=== PATIENT | male | born 1980 | race Caucasian/White ===

== ENCOUNTER 2021-04-13 17:13 | Emergency (ER) | payer OTHER, SELFPAY ==
--- NOTE | ~2021-04-13 | XR_ITS ---
XR lumbar spine 2-3V DATE: 04/13/2021 17:59 INDICATION: Back injury, low back pain TECHNIQUE: AP, lateral, coned lateral lumbosacral views COMPARISON: None FINDINGS: There is moderate degenerative disc disease and grade 1 anterolisthesis at L3-4. Remaining lumbar interspaces are relatively intact. No fracture or bone destruction is evident. Included lower thoracic and lumbar pedicles are intact. The sacroiliac joints appear normal. IMPRESSION: Moderate degenerative disc disease and grade 1 anterolisthesis at L3-4 Reviewed, dictated and finalized at location A. IMPRESSION: Moderate degenerative disc disease and grade 1 anterolisthesis at L 3-4
--- NOTE | ~2021-04-13 | XR_ITS ---
XR shoulder RT min 2V DATE: 04/13/2021 17:58 INDICATION: Hyperextension injury. Limited range of motion. TECHNIQUE: 4 views COMPARISON: None FINDINGS: No fracture or dislocation, periosteal reaction or bone destruction or abnormal right shoul luisa soft tissue calcification. Normal alignment at the acromioclavicular and glenohumeral joints. IMPRESSION: Negative Reviewed, dictated and finalized at location A. IMPRESSION: Negative
[2021-04-13 17:20] VITALS: BP 144/81; PULSE 74; RESP 18; TEMP 36.8; O2SAT 98
--- NOTE | 2021-04-13 17:26 | ED.EXTPRO ---
HPI - Extremity Problem General Chief complaint: Extremity Injury, Upper Stated complaint: Fall Injury/Right Shoulder Time Seen by Provider: 04/13/21 17:42 Source: patient Mode of arrival: ambulatory Limitations: no limitations History of Present Illness HPI Narrative: Leif is a 41 year old male patient who arrived ambulatory to the [facility]. Patient states he fell off of a ten foot ladder this am when working on a pole. He states the ladder crumbled and he slid down the pole landing on his feet then landing on his butt. Patient denies any LOC; shortness of breath, abdominal pain. Patient states he has abrasions on left lower back and bruising above tailbone. STates he has left shoulder pain, states he overextended shoulder when trying to hold onto pole. Patient denies numbness or tingling. Related Data Home Medications Medication Instructions Recorded Confirmed albuterol sulfate 2 puff INHALATION QID 04/13/21 04/13/21 Allergies Allergy/AdvReac Type Severity Reaction Status Date / Time No Known Allergies Allergy Verified 04/13/21 17:35 Review of Systems Review of Systems: CONSTITUTIONAL: Denies body aches, fever, chills, or sweats. EYES: Denies visual changes, redness, or discharge. ENT: Denies rhinorrhea, congestion, sore throat, or otalgia. CARDIOVASCULAR: Denies chest pain, palpitations, or edema. RESPIRATORY: Denies cough or dyspnea. GASTROINTESTINAL: Denies abdominal pain, nausea, vomiting, or diarrhea. GENITOURINARY: Denies dysuria or hematuria. SKIN: Denies rash, itching; abrasion to left lower back,. MUSCULOSKELETAL: Denies back pain, + left shoulder pain NEUROLOGIC: Denies headache, numbness, tingling, or weakness. PSYCH: Denies depression or anxiety. All systems reviewed & are unremarkable except as noted in HPI and below PMFSH Comments At time of signature, I have reviewed and agree with nursing past medical, surgical, social and family history unless otherwise noted. Please see nursing chart for further information. There is no relevant family history pertinent to the presenting complaint Exam Narrative: GENERAL: Well-appearing, well-nourished, and in no acute distress. HEAD: Normocephalic, atraumatic. EYES: EOMI. No redness or drainage. Conjunctivae normal. ENT: Mucous membranes pink and moist. Nares clear. No rhinorrhea. NECK: Normal AROM. Supple. No lymphadenopathy. CHEST: No respiratory distress. Clear to auscultation. HEART: Regular rate and rhythm. No murmur appreciated. Normal peripheral pulses. ABDOMEN: Soft, nontender, nondistended, normal active bowel sounds. MUSCULOSKELETAL: full ROM to left shoulder, pain with palpation of left humerus/acromion process. skin intact no bruising or abrasions noted. Distal sensation and movement intact. Full ROM to left arm.Guarding to left shoulder noted. EXTREMITIES: Normal range of motion. No edema. SKIN: Warm, dry, . Capillary refill normal. Normal skin turgor. Scattered abrasions left flank and left lumbar area, bruising noted lumbar area. NEURO: No focal deficits. Alert and oriented x3. Gait steady. PSYCH: Normal affect. No signs of depression or anxiety. Course Vital Signs Vital signs: Reviewed. Pt has been instructed to follow up with his PCP regarding his elevated blood pressure today. MDM - Extremity (Nontraumatic) MDM Narrative Medical decision making narrative: Sprain left shoulder left lumbar contusion left lumbar abrasion; Shoulder X-Ray 04/13/21 18:00 IMPRESSION: Negative Lumbar Spine X-Ray 04/13/21 18:03 IMPRESSION: Moderate degenerative disc disease and grade 1 anterolisthesis at L3-4 X-rays are all negative. Patient will be informed to monitor the left shoulder and follow-up with his primary care or orthopedic surgeon for continued complaints. Patient was also informed that from falling 10 feet that he should go to the ER for further evaluation. Patient denies any shortness of breath or any issues a
== END 2021-04-13 18:26 | disposition home or self-care (01) ==
PROVIDERS: Emergency Provider Nurse Practitioner Family; PCP Family Medicine
DX: S43.401A Unspecified sprain of right shoulder joint, initial encounter (principal); W11.XXXA Fall on and from ladder, initial encounter; S30.810A Abrasion of lower back and pelvis, initial encounter; S30.0XXA Contusion of lower back and pelvis, initial encounter; J45.909 Unspecified asthma, uncomplicated
CPT/HCPCS: 72100; 73030; 99214; G0463